=== PATIENT | female | born 2000 | race Caucasian/White ===

== ENCOUNTER 2022-10-17 20:14 | Emergency (ER) | payer OTHER ==
[2022-10-17 20:27] VITALS: BP 124/72
--- NOTE | 2022-10-17 20:45 | ED Physician Documentation ---
PD HPI UPPER EXT INJURY - Stated complaint Stated Complaint: THUMB INJURY - Chief complaint Chief Complaint: Ext Problem - History obtained from History obtained from: Patient - History of Present Illness Location: Right, Finger Type of injury: Crush - Additonal information Additional information: 22-year-old Right-handed female presents with Right thumb injury after smashing it in a piece of equipment at work. She smashed the thumb nail and sustained subungual hematoma as well as bruising around the tip of the thumb. She wanted to be sure its not fractured. She is Able to flex and extend the thumb. She has not attempted any treatment for this. PD PAST MEDICAL HISTORY - Past Medical History Past Medical History: No - Allergies Allergies/Adverse Reactions: Allergies Allergy/AdvReac Type Severity Reaction Status Date / Time No Known Drug Allergies Allergy Verified 10/17/22 20:24 PD ED PE NORMAL - Vitals Vital signs reviewed: Yes - General General: Alert and oriented X 3, No acute distress - Derm Derm: Normal color, Warm and dry - Extremities Extremities: Other (There is a subungual hematoma of the right thumbnail approximately 30% across the base of the nail and mild bruising on the tip of the thumb as well as an Abrasion on the thumb pad. There is no active bleeding, no obvious deformity.) Results - Vitals Vitals: Vital Signs - 24 hr 10/17/22 20:22 Temperature 36.6 C Heart Rate 86 Respiratory 16 Rate Blood Pressure 124/72 O2 Saturation 100 Oxygen O2 Source Room air - Rads (name of study) No standard instances Relevant Findings:: EMP independent interpretation of test PD Medical Decision Making - ED course Complexity details: reviewed results, d/w patient ED course: 22-year-old female presented with right thumb injury as described in HPI. She is frustrated we tunic piece of equipment and sustained a subungual hematoma. I did offer to drain this for her but she declined. I obtained an x-ray which is negative for fracture per my read. She does have some bruising in the tip of the thumb and subungual hematoma both of which can cause some discomfort. Advised supportive measures, cool compress, ibuprofen and Tylenol. She was given a work note for the next several days, and can do light duty if needed. Return precautions reviewed if any signs of infection. The patient is up-to-date on her tetanus. Departure - Departure Disposition: 01 Home, Self Care Clinical Impression: Injury of thumb, right Qualifiers: Encounter type: initial encounter Qualified Code(s): S69.91XA - Unspecified injury of right wrist, hand and finger(s), initial encounter Subungual hematoma of right thumb Qualifiers: Encounter type: initial encounter Qualified Code(s): S60.111A - Contusion of right thumb with damage to nail, initial encounter Condition: Good Instructions: ED Contusion Hand, ED Hematoma Subungual Comments: The xray of your thumb is negative for fracture/break. You likely have some bone bruising though that can be uncomfortable. You can take Tylenol and ibuprofen for this and utilize cool compress to help with pain. Symptoms should improve in the next week or 2. Forms: Activity restrictions
--- NOTE | 2022-10-17 21:54 | XRAY Report ---
PROCEDURE: Finger(s) RT INDICATIONS: smashed thumb TECHNIQUE: AP hand, 2 views of the first digit) acquired. COMPARISON: None. FINDINGS: Bones: No fractures or dislocations. No suspicious bony lesions. Soft tissues: No suspicious soft tissue calcifications or masses. IMPRESSION: 1. No fracture or dislocation. Reviewed by: Gume Berrios MD on 10/17/2022 9:52 PM PDT Approved by: Gume Berrios MD on 10/17/2022 9:52 PM PDT Station ID: [id number]
== END 2022-10-17 21:20 | disposition home or self-care (01) ==
LOC: ED 20:14
DX: S67.01XA Crushing injury of right thumb, initial encounter (principal); S60.111A Contusion of right thumb with damage to nail, initial encounter; S60.311A Abrasion of right thumb, initial encounter; W31.9XXA Contact with unspecified machinery, initial encounter; Y92.89 Other specified places as the place of occurrence of the external cause; Y99.1 Military activity
CPT/HCPCS: 99283

== ENCOUNTER 2023-03-12 16:45 | Outpatient (CLI) | payer OTHER | END 2023-03-12 17:00 | disposition home or self-care (01) | LOC: LAB.N 16:45 | PROVIDERS: ATTEND Registered Nurse | DX: R35.0 Frequency of micturition (principal) | CPT/HCPCS: 87086 ==

== ENCOUNTER 2023-05-03 14:11 | Emergency (ER) | payer OTHER ==
--- NOTE | 2023-05-03 16:26 | Ultrasound Report ---
PROCEDURE: OB First Trimester w/TV INDICATIONS: vb 6wk preg OUTSIDE/PRIOR DATING DATA: Last menstrual period (LMP): 02/22/2023. LMP-based estimated date of delivery (KRYSTINA): 11/29/2023. First dating scan (date and location): [facility]. Estimated date of delivery (KRYSTINA) from first dating scan: Today. TECHNIQUE: Real-time scanning was performed of the fetus and maternal pelvic organs, with image documentation. Endovaginal scanning was also performed to better visualize the fetus and maternal ovaries. COMPARISON: None. FINDINGS: Intrauterine gestational sac present. Gestational sac with a mean sac diameter of 2.3 cm consistent with 7 weeks 2 days. No heart rat e is observed. No pole is identified. Yolk sac is present however there is an additional rounde d structure within this yolk sac. Additional small cluster of cystlike appearing structures with ring like morphology. Other: No subchorionic fluid collection. Maternal organs: Ovaries appear within normal limits. IMPRESSION: No identifiable heart rate with dating by mean gestational sac size of 7 weeks 2 days. Abnormal morphology of the intrauterine gestational sac structures raising concern for genetic irregu larity. Recommend [facility] consultation and follow-up imaging. Dr. Calvert discussed the above findings with the ordering provider at 2:25 PM 05/03/2023 Reviewed by: Angelo Calvert MD on 05/03/2023 3:25 PM AKST Approved by: Angelo Calvert MD on 05/03/2023 3:25 PM AKST Station ID: [id number]
--- NOTE | 2023-05-03 16:48 | ED Physician Documentation ---
History of Present Illness - Stated complaint Stated Complaint: BLEEDING/6WKS - Chief complaint Chief Complaint: General - History obtained from History obtained from: Patient - Additonal information Additional information: 22-year-old G1 with LMP of February 22 went to OB in [place] 2 days ago and was told that she had an IUP but without identifiable heart rate and the dates were not consistent. Since then has had bleeding less than regular menses. She states her blood type is known to be a negative. PD PAST MEDICAL HISTORY - Past Medical History Past Medical History: No - Allergies Allergies/Adverse Reactions: Allergies Allergy/AdvReac Type Severity Reaction Status Date / Time No Known Drug Allergies Allergy Verified 10/17/22 20:24 - Social History Does the pt smoke?: Yes Smoking Status: Current every day smoker PD ED PE NORMAL - Vitals Vital signs reviewed: Yes - General General: Alert and oriented X 3, No acute distress - Abdomen Abdomen: Non tender - Neuro Neuro: Alert and oriented X 3, Normal speech Results - Vitals Vitals: Vital Signs - 24 hr 05/03/23 14:20 Temperature 36.1 C L Heart Rate 81 Respiratory 18 Rate Blood Pressure 120/57 L O2 Saturation 100 Oxygen O2 Source Room air - Labs Labs: Laboratory Tests 05/03/23 05/03/23 05/03/23 16:44 16:44 16:44 WBC 9.1 RBC 4.52 Hgb 13.9 Hct 42.1 MCV 93.1 MCH 30.8 MCHC 33.0 RDW 12.2 Plt Count 273 MPV 10.1 Neut # (Auto) 5.9 Lymph # (Auto) 2.1 [place] # (Auto) 0.7 Eos # (Auto) 0.2 Baso # (Auto) 0.1 Absolute Nucleated RBC 0.00 Nucleated RBC % 0.0 Sodium 136 Potassium 3.9 Chloride 103 Carbon Dioxide 26 Anion Gap 7.0 BUN 12 Creatinine 0.6 Estimated GFR (MDRD) 127 Glucose 82 Calcium 10.3 Blood Type A NEGATIVE - Rads (name of study) Ob sono Relevant Findings:: Final report received, EMP independent interpretation of test PD Medical Decision Making - ED course ED course: 22-year-old G1 in early with vaginal bleeding. Nonreassuring ultrasound with likely blighted ovum, case discussed by phone with Dr. Batista, her OB individual pension consultant who does recommend repeat ultrasonography in 1 week and RhoGAM if we confirm that her blood type is a negative. Dr. Batista called me back shortly after initial conversation and actually did not recommend RhoGAM as she is in early . Departure - Departure Disposition: 01 Home, Self Care Clinical Impression: Miscarriage Condition: Good Record reviewed to determine appropriate education?: Yes Instructions: Miscarriage Dc Comments: Unfortunately it does look more likely than not that you are miscarrying today, I did talk with our obstetric individual pension consultant who recommended a repeat ultrasound in a week and you can arrange this through your OB. She did not recommend Rh immunization/RhoGAM given the early . Return if worse. Forms: PCP List
[2023-05-03 16:49] LABS: BASOPHILS # (AUTO) 0.1 10^3/uL (0.0-0.1); BASOPHILS % (AUTO) 1.1 %; EOSINOPHILS # (AUTO) 0.2 10^3/uL (0.0-0.7); HCT - HEMATOCRIT 42.1 % (37.0-47.0); HGB - HEMOGLOBIN 13.9 g/dL (12.0-16.0); LYMPHOCYTES # (AUTO) 2.1 10^3/uL (1.5-3.5); LYMPHOCYTES % (AUTO) 23.2 %; MEAN CORPUSCULAR HEMOGLOBIN 30.8 pg (27.0-31.0); MEAN CORPUSCULAR VOLUME 93.1 fL (81.0-99.0); MEAN PLATELET VOLUME 10.1 fL (7.9-10.8); MONOCYTES # (AUTO) 0.7 10^3/uL (0.0-1.0); MONOCYTES % (AUTO) 8.1 %; NEUTROPHILS # (AUTO) 5.9 10^3/uL (1.5-6.6); NEUTROPHILS % (AUTO) 65.2 %; PLT - PLATELET COUNT 273 10^3/uL (130-450); RED BLOOD COUNT 4.52 10^6/uL (4.20-5.40); RED CELL DISTRIBUTION WIDTH 12.2 % (12.0-15.0); WHITE BLOOD COUNT 9.1 x10^3/uL (4.8-10.8)
[2023-05-03 17:05] LABS: CALCIUM 10.3 mg/dL (8.5-10.3); CREATININE 0.6 mg/dL (0.6-1.3); POTASSIUM 3.9 mmol/L (3.5-4.5)
[2023-05-03 17:34] VITALS: BP 118/87; O2SAT 98
== END 2023-05-03 17:30 | disposition home or self-care (01) ==
LOC: ED 14:11
DX: O03.9 Complete or unspecified spontaneous abortion without complication (principal); O99.331 Smoking (tobacco) complicating pregnancy, first trimester; F17.200 Nicotine dependence, unspecified, uncomplicated; Z3A.00 Weeks of gestation of pregnancy not specified
CPT/HCPCS: 36415; 80048; 84702; 85025; 86900; 86901; 99283

== ENCOUNTER 2024-02-19 08:00 | Outpatient (CLI) | payer OTHER ==
[2024-02-20 00:44] LABS: BACTERIAL VAGINOSIS DNA POSITIVE (NEGATIVE); CANDIDA GLABRATA DNA NEGATIVE (NEGATIVE); CANDIDA GROUP DNA NEGATIVE (NEGATIVE); CANDIDA KRUSEI DNA NEGATIVE (NEGATIVE); TRICHOMONAS VAGINALIS DNA NEGATIVE (NEGATIVE)
[2024-02-20 01:41] LABS: CHLAMYDIA TRACHOMATIS DNA NEGATIVE (NEGATIVE); NEISSERIA GONORRHOEAE DNA NEGATIVE (NEGATIVE)
== END 2024-02-19 23:59 | disposition home or self-care (01) ==
LOC: LAB.N 08:00
PROVIDERS: ATTEND Physician Assistant
DX: R30.0 Dysuria (principal)
CPT/HCPCS: 81514; 87491; 87591; 87661